=== PATIENT | female | born 1945 | race Two or more races ===

== ENCOUNTER 2025-07-24 20:27 | Emergency (ER) | payer MEDICARE, MEDICAID, SELFPAY ==
[2025-07-24 20:28] VITALS: BMI 21.2
[2025-07-24 20:47] VITALS: BP 208/65; BP 209/68; PULSE 68; RESP 20; TEMP 36.6; O2SAT 98
--- NOTE | 2025-07-24 20:54 | EKG_ITS ---
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
--- NOTE | 2025-07-24 21:01 | PD.EDADULT ---
ED General RME/HPI General Chief complaint: General Adult/Misc Complain Stated complaint: HIGH BLOOD PRESSURE Time Seen by Provider: 07/24/25 21:02 Arrival date/time: 07/24/25 20:27 RME / HPI Exam: cc: high blood pressure Patient is a 80-year-old female with a past medical history of hyperlipidemia hypertension recently switched from lisinopril 10 mg p.o. daily to Losartan 25 mg p.o. daily who presented to the emergency room with a chief complaint of hypertension that was noted at home. Patient denied blurry vision or headaches. Patient denies any syncope or pre-syncope events. Patient denied any head trauma. Patient denied any chest pain. Patient denied any diarrhea. Patient denied any recent sick contacts. Denied dysuria or increased polyuria. Adherent to medication. cbc cmp ekg troponin CT head Related Data Allergies Allergy/AdvReac Type Severity Reaction Status Date / Time No Known Allergies Allergy Verified 07/24/25 20:31 Review of Systems Review of Systems Narrative Review of Systems: General appearance: NO weight change, NO fatigue, NO weakness, NO fever, NO chills, NO night sweats, No cough Skin: NO rash, NO itching, NO sores, NO moles HEENT: NO Trauma, NO nausea, NO vomiting, NO visual changes, NO blurry vision, NO double vision, NO tinnitus, NO vertigo, NO ear discharge, NO rhinorrhea, NO stuffiness, NO sneezing, NO allergy, NO epistaxis. NO Hoarseness, NO sore throat, NO swollen neck. Cardiac: NO Palpitations, NO dyspnea on exertion, NO orthopnea, NO paroxysmal nocturnal dyspnea, NO edema Respiratory: NO Shortness of Breath, NO Wheezing, NO Cough, NO Sputum, NO hemoptysis GI:NO appetite, NO nausea, NO vomiting, NO dysphagia, NO changes in bowel frequency, NO stool color, NO diarrhea, NO constipation, NO hemetemesis, NO hemorrhoids, NO melena, NO hematechezia, NO abdominal pain, NO jaundice Renal: NO frequency, NO hesitancy, NO urgency, NO hematuria, NO nocturia, NO incontinence MSK: NO muscle weakness, NO gout, NO arthritis, NO muscle stiffness Neuro: NO headaches, NO tremors, NO weakness, NO paralysis, NO seizures, NO loss of consciousness, NO numbness. Hem: NO anemia, NO easy bruising/bleeding, NO petechiae, NO purpura Endo: NO heat/cold intolerance, NO excessive sweating, NO polyuria, NO polydipsia, NO polyphagia, NO thyroid problems, NO diabetes Pysch: NO mood, NO anxiety, NO depression ED Exam Narrative Physical exam: General Appearance: Alert & Oriented X3, thin female who is lying in bed in NO acute distress HEENT: Skull symmetrical and atraumatic. Conjunctivae pink and moist. Pupils equal, round, reactive to light and accommodation (PERRL). External ear without lesion or discharge. Straight, nares patient, mucosa pink, no discharge. Cardio: Normal Rate and Rhythm with S1 and S2 heart sounds. No murmurs or extra heart sounds auscultated. No bruits on carotid auscultation. No peripheral edema or cyanosis. Lungs: Symmetric with good expansion. Chest and back non-tender. Breath sounds vesicular without crackles, wheezing or rhonchi Abdomen: Non-tender, Non-distended, Normal Reactive Bowel Sounds Neuro: Alert, cooperative, oriented to person, place, and time. Speech clear. CN grossly intact. Upper motor strength 5/5 and Lower motor strength 5/5. Sensation intact. 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 START 00 Care 07/24/25 22:00 Active EKG (ED ONLY) *Do not use* NOW Care 07/24/25 20:54 Completed Miscellaneous Nursing Order X1 Care 07/24/25 21:54 Active Saline [Insert IV] NOW Care 07/24/25 21:13 Active Straight [In and Out Catheter] X1 Care 07/24/25 21:[address] head/brain wo con Stat Exams 07/24/25 21:13 Completed EKG (ED Only) Stat Exams 07/24/25 20:54 Draft XR chest 1V portable Stat Exams 07/24/25 21:13 Completed Alcohol, Urine Stat Lab 07/24/25 21:13 Completed BNP [B-Type Natriuretic Peptide] Stat Lab 07/24/25 21:13 Completed Bilirubin,Direct Stat Lab 07/24/25 21:20 Completed CBC Stat Lab 07/24/25 21:20 Completed CMP [Comprehensive Metabolic Panel] Stat Lab 07/24/25 21:20 Completed Cocci Serology IgM with reflex to IgG [Cocci Serology, Lab 07/24/25 22:40 Received Unk History] Stat Drug Screen,Urine Stat Lab 07/24/25 21:13 Completed Free T3 Stat Lab 07/24/25 21:20 Completed Free T4 (Free Thyroxine) Stat Lab 07/24/25 21:20 Completed Magnesium Stat Lab 07/24/25 21:20 Completed TSH [Thyroid Stimulating Hormone] Stat Lab 07/24/25 21:20 Completed Troponin I Stat Lab 07/24/25 21:20 Completed Urinalysis, C/S if Indicated Stat Lab 07/25/25 01:11 Completed Labetalol IV [Trandate IV] Med 07/24/25 20:49 Discontinued 10 mg IVP X1 ONE NIFEdipine [Procardia Xl] Med 07/24/25 23:37 Discontinued 30 mg PO X1 ONE Simethicone [Mylicon Chew] Med 07/24/25 20:59 Discontinued 80 mg PO X1 ONE hydrALAZINE INJ [Apresoline Inj] Med 07/25/25 00:44 Discontinued 10 mg IVP X1 ONE Vital Signs Vital signs: Vital Signs Temperature 98 F 07/24/25 20:47 Pulse Rate 68 07/24/25 20:47 Respiratory Rate 20 07/24/25 20:47 Blood Pressure 209/68 H 07/24/25 20:47 Pulse Oximetry (%) 98 07/24/25 20:47 Oxygen Delivery Method Room Air 07/24/25 20:47 Discharge Plan Plan Patient Disposition: HOME (Self Care) Health Concerns: Instructions: -you have been diagnosed with uncontrolled hypertension please follow up with your primary care provider to make adjustments to your blood pressure medication -CT head, urine analysis, and chest x-ray were all negative for any acute changes. -Ask your primary care provider to work up resistant hypertension if your blood pressure does not improve. -please take your blood pressure twice daily and show your primary care provider. -Continue taking your Losartan. -Please follow up for Cocci/valley fever test within one week and request reports. -Please follow up with your primary care provider within one week of discharge -If your symptoms worsen,please seek immediate medical attention and return to your nearest emergency room -If you do not have a primary care provider, you may follow up at the [facility] at [address], [place] [address], Prescriptions/Referrals Prescriptions/Med Rec: Discontinued lisinopril 10 mg tablet 10 mg PO QDAY Qty: 14 0RF Referrals: No Primary/Family,Physician [Primary Care Provider] - In 1 week Problem List Clinical Impression: History of uncontrolled hypertension, Asymptomatic hypertensive urgency Patient/Caregiver Discharge Instructions Education Materials: Blood Pressure Check Steps Print Language: Panjabi (Mara) Stand Alone Forms: Kristi Award Info., Patient Portal Info Letter MDM Labs/Rad/Tests considered, not ordered None Describe: None Chronic Illness/Social Conditions which may negatively complicate care or outcome(s)-explain: other (HTN HLD) Explain: Exacerbated by history of HTN Labs Labs: interpreted by me Lab(s) Interpretation(s): CBC No anemia or Leukocytosis noted CMP no SANDY noted EKG No ST elevation No Troponin Cxr: Bronchitis pattern CT Head : Negative for acute hemorrhage, mass effect or midline shift UA: negative UA Imaging Imaging interpretation: interpreted by nh Imaging Interpretation(s): Cxr: Bronchitis pattern CT Head : Negative for acute hemorrhage, mass effect or midline shift Medication Administration(s) Medication Administration History Discontinued Medications Hydralazine HCl (Hydralazine Inj 20 Mg/Ml Vial) 10 mg IVP X1 ONE Stop: 07/25/25 00:45 Last Admin: 07/25/25 00:54 Dose: 10 mg Documented By: MARYSOL Labetalol HCl (Labetalol Inj 5 Mg/Ml Vial 20 Ml) 10 mg IVP X1 ONE Stop: 07/24/25 20:50 Last Admin: 07/24/25 21:22 Dose: 10 mg Documented By: [email or web address] Nifedipine (Nifedipine Xl 30 Mg Tabcr) 30 mg PO X1 ONE Stop: 07/24/25 23:38 Last Admin: 07/24/25 23:49 Dose: 30 mg Documented By: [email or web address] Simethicone (Simethicone 80 Mg Chew) 80 mg PO X1 ONE Stop: 07/24/25 21:00 Last Admin: 07/24/25 21:51 Dose: 80 mg Documented By: [email or web address] same as above Diagnosis Differential Diagnosis ED Complaint MDM: Resistant HTN VS Stroke Vs UTI VS Metabolic Diagnoses ruled out and/or further discussions: Patient has a past medical history of HTN and HLD who recently had a change in medication from Lisinopril to Losartan by PCP. Patient presented to the emergency room with systolic BP of 209, concern for uncontrolled HTN. No infectious disease noted as Cxr and UA negative. Flu and COVID negative. Cocci pending, please follow up. No metabolic cause such as elecrtolyte imbalance, TSH within normal limits, and NO SANDY. CT head negative, stroke ruled out. Paitnet likely has uncontrolled HTN.
--- NOTE | 2025-07-24 21:13 | XR_ITS ---
Examination: CT brain head without contrast. 2-D sagittal coronal reconstructions Date and time of exam: July 24, 2025, 1050 hours INDICATIONS: High blood pressure headache today CTDI: vol (mGy): 44.7 DLP: (mGycm): 940 Technique: Multiple CT axial sections of the brain have been obtained, 5 mm slice thickness. Contrast has not been administered. 2-D sagittal, coronal reconstructions have been obtained Low dose protocols were performed. One or more of the following dose reduction techniques were used; automated exposure control, adjustment of the mA and/or KV according to patient size, use of iterative reconstruction technique. Findings: No significant ventricular enlargement. Intra-axial or extra-axial hemorrhage density is not seen. No mass effect or midline shift Basal cisterns are not remarkable. Fourth ventricle is midline. Cranial vault intact. Impression: Negative for acute hemorrhage, mass effect or midline shift
--- NOTE | 2025-07-24 21:13 | XR_ITS ---
EXAMINATION: AP chest single view TECHNIQUE: AP portable upright chest single view Date and time: July 24, 2025, 2131 hours INDICATIONS: Shortness of breath today. FINDINGS: Normal heart size Accentuation of bronchovascular markings. No lobar pneumonia or pulmonary edema Prominent osteopenia IMPRESSION: Bronchitis pattern
[2025-07-24 21:22] VITALS: BP 234/81; PULSE 70
[2025-07-24] MEDS: LABETALOL INJ 5 MG/ML VIAL 20 ML 10 MG IVP (21:22)
[2025-07-24 21:30] VITALS: BP 183/62
[2025-07-24 21:35] LABS: Basophils # (Auto) 0.0 Thou/mm3 (0.0-0.2); Basophils % (Auto) 1 % (0-2.5); Eosinophils # (Auto) 0.3 Thou/mm3 (0.0-0.5); Eosinophils % (Auto) 4 % (0-10); Hematocrit 38.0 % (36.0-46.0); Hemoglobin 12.9 g/dL (12.0-16.0); Immature Granulocytes Auto 0.01 Thou/mm3 (0.00-0.00); Lymphocytes # (Auto) 3.3 Thou/mm3 (1.0-4.8); Lymphocytes % (Auto) 50 % (10-50); Mean Corpuscular HGB Conc 33.9 g/dl (31.0-37.0); Mean Corpuscular Hemoglobin 32.3 pg (25.0-35.0); Mean Corpuscular Volume 95 fL (80-100); Monocytes # (Auto) 0.7 Thou/mm3 (0.0-0.8); Monocytes % (Auto) 11 % (0-12); Neutrophils # (Auto) 2.3 Thou/mm3 (1.8-7.7); Neutrophils % (Auto) 35 % (37-80); Nucleated Red Blood Cell # 0.00 Thou/mm3 (0.00-0.00); Nucleated Red Blood Cell % 0 /100 WBC (0); Platelet Count 224 Thou/mm3 (140-440); RDW Standard Deviation 42.2 fL (36.4-46.3); Red Blood Count 3.99 Miln/mm3 (4.00-5.20); White Blood Count 6.6 Thou/mm3 (3.6-11.0)
[2025-07-24] MEDS: SIMETHICONE 80 MG CHEW PO (21:51)
[2025-07-24 21:56] LABS: B-Type Natriuretic Peptide 57 pg/mL (0-100)
[2025-07-24 21:59] LABS: Alanine Aminotransferase 15 U/L (10-49); Albumin, Serum 4.6 gm/dL (3.4-4.8); Albumin/Globulin Ratio 1.8 (1.2-2.2); Alkaline Phosphatase 52 U/L (46-116); Anion Gap 6 (7-16); Aspartate Amino Transferase 22 U/L (0-34); BUN/Creatinine Ratio 17 Ratio (12-20); Bilirubin,Direct < 0.1 mg/dL (0.0-0.3); Bilirubin,Total 0.3 mg/dL (0.3-1.2); Blood Urea Nitrogen 12 mg/dL (9-23); Calcium 9.9 mg/dL (8.3-10.6); Calcium (Corrected) 9.9 mg/dL (8.5-10.1); Carbon Dioxide 28.4 mMol/L (20.0-31.0); Chloride 105 mMol/L (98-107); Creatinine (Component) 0.7 mg/dL (0.6-1.3); Estimated Creatinine Clearance 53.9 mL/min (>60); Globulin 2.6 gm/dL (2.3-3.5); Glucose 93 mg/dL (74-106); Magnesium 2.0 mg/dL (1.6-2.6); Osmolality,Calculated 277 (275-295); Potassium 3.9 mMol/L (3.4-5.1); Sodium 139 mMol/L (136-145); Thyroid Stimulating Hormone 7.54 uIU/mL (0.55-4.78); Total Protein 7.2 gm/dL (5.7-8.2); Troponin I < 0.020 ng/mL (0.0-0.045); eGFR > 60 See Note
[2025-07-24 22:00] VITALS: BP 187/78; PULSE 55; RESP 18; O2SAT 98
--- NOTE | 2025-07-24 22:04 | PC.NURSE ---
MD BETHEA AWARE OF PTS HIGH BP AFTER LABATOLOL, STATES SHE WILL PRESCRIBE MORE BP MEDS.
[2025-07-24 22:18] LABS: Alcohol, Urine Negative (Negative); Amphetamine/Methamp Scrn,U Negative (Negative); Barbiturate Screen,Urine Negative (Negative); Benzodiazepines Screen,Urine Negative (Negative); Benzoylecgonine Screen, Ur Negative (Negative); Fentanyl Screen,Urine Negative (Negative); Opiate Screen,Urine Negative (Negative); THC Screen,Urine Negative (Negative)
[2025-07-24 23:03] LABS: Free T3 3.3 pg/mL (2.3-4.2); Free T4 (Free Thyroxine) 1.14 ng/dL (0.89-1.76)
[2025-07-24 23:46] VITALS: BP 193/73; PULSE 63; RESP 16; TEMP 36.8; O2SAT 98
[2025-07-24 23:49] VITALS: BP 184/75; PULSE 66
[2025-07-24] MEDS: NIFEdipine XL 30 MG TABCR PO (23:49)
[2025-07-25 00:12] VITALS: BP 153/102; PULSE 57; RESP 16; TEMP 36.3; O2SAT 100
[2025-07-25 00:54] VITALS: BP 197/74; PULSE 61
[2025-07-25] MEDS: hydrALAZINE INJ 20 MG/ML VIAL 10 MG IVP (00:54)
[2025-07-25 01:14] VITALS: PULSE 81
[2025-07-25 01:21] LABS: Collection Type, Urine Clean Catch
[2025-07-25 01:41] LABS: Bilirubin,Urine Negative (Negative); Blood,Urine Negative (Negative); Clarity,Urine Clear (Clear/Hazy); Color,Urine Colorless (Lt Yel-Yel); Culture Indicated,Urine Not Indicated; Glucose, Urine Negative (Negative); Ketones,Urine Negative (Negative); Leukocyte Esterase,Urine Negative (Negative); Nitrite,Urine Negative (Negative); PH,Urine 7.0 (5.0-7.0); Protein,Urine Negative (Neg - Trace); RBC,Urine 1 /hpf (0-3); Specific Gravity,Urine 1.005 (1.001-1.035); Squamous Epithelial Cell,Urine < 1 /hpf (0-5); Urobilinogen,Urine Negative mg/dL (0.0-1.0); WBC,Urine 1 /hpf (0-5)
[2025-07-25 02:00] VITALS: BP 154/64; PULSE 76; RESP 14; O2SAT 98
[2025-07-25 11:47] LABS: Cocci Serology, IgM Negative (Negative)
[2025-07-26 14:06] LABS: Cocci Serology, IgG Negative (Negative)
== END 2025-07-25 02:24 | disposition home or self-care (01) ==
PROVIDERS: Emergency Provider Emergency Medicine
DX: I16.1 Hypertensive emergency (principal); I10 Essential (primary) hypertension; E78.5 Hyperlipidemia, unspecified
CPT/HCPCS: 36415; 70450; 71045; 80053; 80307; 80320; 81001; 82248; 83735; 83880; 84439; 84443; 84481; 84484; 85025; 86331; 86635; 93005; 96374; 96375; 99284; J0360; J3490; A9270; G0480; J1920